=== PATIENT | male | born 1950 | race Caucasian/White ===

== ENCOUNTER → 2016-12-18 | Outpatient (CLI) | payer BC ==
[~2016-12-18] MED LIST: ASPEC325 PO; EZET10TA63 PO; FOLGARD PO; METO25TA3 PO; OMEG10007 PO
[2016-12-18 15:02] LABS: BLOOD UREA NITROGEN 21 mg/dl (7-18); CALCIUM 9.6 mg/dl (8.5-10.1); CARBON DIOXIDE 31 mmol/L (21-32); CHLORIDE 106 mmol/L (98-107); GLUCOSE 82 mg/dl (70-99); POTASSIUM 4.2 mmol/L (3.5-5.1); SODIUM 144 mmol/L (136-145)
== END | disposition home or self-care (01) ==
LOC: C.LAB1850 13:25
PROVIDERS: ATTEND Family Medicine
DX: I10 Essential (primary) hypertension (principal)

== ENCOUNTER → 2017-01-17 | Outpatient (CLI) | payer BC ==
[2017-01-17 11:05] LABS: HEMATOCRIT 43.4 % (42-52); MEAN CELL VOLUME 89.3 fL (80-100); MEAN CORPUSCULAR HEMOGLOBIN 30.9 pg (25-34); MEAN CORPUSCULAR HGB CONC 34.6 g/dl (32-36); MEAN PLATELET VOLUME 10.6 fL (7.4-10.4); PLATELET COUNT 166 K/uL (130-400); RED BLOOD COUNT 4.86 M/uL (4.7-6.1); WHITE BLOOD COUNT 4.53 K/uL (4.8-10.8)
[2017-01-17 11:18] LABS: CHOLESTEROL/HDL RATIO 4.2
== END | disposition home or self-care (01) ==
LOC: C.LAB1850 09:36
PROVIDERS: ATTEND Family Medicine
DX: Z11.59 Encounter for screening for other viral diseases (principal); E78.00 Pure hypercholesterolemia, unspecified; I25.10 Atherosclerotic heart disease of native coronary artery without angina pectoris

== ENCOUNTER → 2017-03-21 | Outpatient (CLI) | payer BC | END | disposition home or self-care (01) | LOC: C.LAB1850 08:24 | PROVIDERS: ATTEND Family Medicine | DX: M10.9 Gout, unspecified (principal) ==

== ENCOUNTER → 2017-04-13 | Outpatient (CLI) | payer BC | END | disposition home or self-care (01) | LOC: C.LAB1850 14:28 | PROVIDERS: ATTEND Family Medicine | DX: M10.9 Gout, unspecified (principal) ==

== ENCOUNTER → 2017-08-06 | Outpatient (CLI) | payer BC ==
[2017-08-06 16:53] LABS: ALT/SGPT 52 U/L (12-78); BLOOD UREA NITROGEN 14 mg/dl (7-18); BUN/CREATININE RATIO 10.8 (10-20); CARBON DIOXIDE 26 mmol/L (21-32); CHLORIDE 108 mmol/L (98-107); CHOLESTEROL 210 mg/dl (0-200); GLUCOSE 81 mg/dl (70-99); POTASSIUM 4.1 mmol/L (3.5-5.1); SODIUM 142 mmol/L (136-145)
[2017-08-06 16:56] LABS: ALKALINE PHOSPHATASE 120 U/L (45-117); AST/SGOT 31 U/L (15-37); HDL CHOLESTEROL 52 mg/dl; LDL CHOLESTEROL CALCULATED 134 mg/dl; TRIGLYCERIDES 122 mg/dl (0-150); VERY LOW DENSITY LIPOPROT CALC 24 mg/dl
== END | disposition home or self-care (01) ==
LOC: C.LAB1850 15:05
PROVIDERS: ATTEND Family Medicine
DX: I10 Essential (primary) hypertension (principal); E78.00 Pure hypercholesterolemia, unspecified; I25.10 Atherosclerotic heart disease of native coronary artery without angina pectoris

== ENCOUNTER → 2017-10-26 | Outpatient (CLI) | payer BC ==
[2017-10-26 10:32] LABS: BASO % 0.5 %; BASO ABS # 0.03 K/uL (0-0.2); EOS % 2.6 %; EOS ABS # 0.16 K/uL (0-0.5); HEMATOCRIT 45.8 % (42-52); HEMOGLOBIN 15.7 g/dL (14.0-18.0); IG# 0.02 K/uL (0.00-0.02); LYMPH % 37.6 %; LYMPH ABS # 2.31 K/uL (1.2-3.4); MEAN CELL VOLUME 91.8 fL (80-100); MEAN CORPUSCULAR HEMOGLOBIN 31.5 pg (25-34); MEAN CORPUSCULAR HGB CONC 34.3 g/dl (32-36); MEAN PLATELET VOLUME 9.9 fL (7.4-10.4); MONO % 11.2 %; MONO ABS # 0.69 K/uL (0.11-0.59); NEUT % 47.8 %; NEUT ABS # 2.93 K/uL (1.4-6.5); PLATELET COUNT 192 K/uL (130-400); RED CELL DISTRIBUTION WIDTH CV 13.6 % (11.5-14.5); RED CELL DISTRIBUTION WIDTH SD 44.8 fL (36.4-46.3); WHITE BLOOD COUNT 6.14 K/uL (4.8-10.8)
[2017-10-26 10:59] LABS: BLOOD UREA NITROGEN 26 mg/dl (7-18); CREATININE 1.17 mg/dl (0.60-1.40); GLUCOSE 101 mg/dl (70-99)
[2017-10-26 11:00] LABS: CALCIUM 9.7 mg/dl (8.5-10.1); CARBON DIOXIDE 30 mmol/L (21-32); POTASSIUM 3.8 mmol/L (3.5-5.1); SODIUM 137 mmol/L (136-145)
== END | disposition home or self-care (01) ==
LOC: C.LAB1850 09:04
PROVIDERS: ATTEND Physician Assistant
DX: K92.1 Melena (principal); I25.10 Atherosclerotic heart disease of native coronary artery without angina pectoris

== ENCOUNTER → 2017-12-05 | Outpatient (CLI) | payer BC | END | disposition home or self-care (01) | LOC: C.RDSM 19:00 | PROVIDERS: ATTEND Physical Medicine & Rehabilitation Sports Medicine | DX: M25.511 Pain in right shoulder (principal) ==

== ENCOUNTER → 2018-02-05 | Outpatient (CLI) | payer BC ==
[2018-02-05 17:03] LABS: ALBUMIN 3.8 gm/dl (3.4-5.0); ALT/SGPT 45 U/L (12-78); BLOOD UREA NITROGEN 15 mg/dl (7-18); CALCIUM 9.3 mg/dl (8.5-10.1); CARBON DIOXIDE 27 mmol/L (21-32); CHOLESTEROL 183 mg/dl (0-200); CREATININE 1.01 mg/dl (0.60-1.40); GLUCOSE 80 mg/dl (70-99); POTASSIUM 3.7 mmol/L (3.5-5.1); SODIUM 141 mmol/L (136-145); URIC ACID 5.7 mg/dl (2.6-7.2)
[2018-02-05 17:06] LABS: ALKALINE PHOSPHATASE 110 U/L (45-117); AST/SGOT 23 U/L (15-37); LDL CHOLESTEROL CALCULATED 121 mg/dl; TOTAL PROTEIN 7.4 gm/dl (6.4-8.2)
== END | disposition home or self-care (01) ==
LOC: C.LAB1850 15:50
PROVIDERS: ATTEND Family Medicine
DX: I10 Essential (primary) hypertension (principal); E78.00 Pure hypercholesterolemia, unspecified; I25.10 Atherosclerotic heart disease of native coronary artery without angina pectoris; M10.9 Gout, unspecified

== ENCOUNTER 2021-09-24 13:42 | Inpatient (IN) ==
--- NOTE | 2021-09-24 14:07 | CT Scan Report ---
CT head/brain wo con CLINICAL HISTORY: Stroke Alert Technique: Contiguous axial CT images of the head were acquired from the base of the skull to the ned daniel without intravenous contrast administration. Images were viewed in brain, subdural and bone [facility] . Automated dose lowering techniques and/or adjustment according to patient size were utilized for this exam. Comparison: Comparison is made to CTA head and neck 09/22/2021 Findings: There is a hypodensity in the right lentiform nucleus. This is more pronounced than on prior exam. Imaged portions of the paranasal sinuses and mastoid air cells are clear. The orbits appear normal. There are no acute fractures of the calvaria or scalp swelling. Impression: Increased prominence of the hypodensity in the right lentiform nucleus is concerning for a small acut e infarct. ACT 112: Negative or not required by law. Electronically signed by: Hernan Hollingsworth M.D. 09/24/2021 2:06 PM
[2021-09-24 14:25] LABS: Hematocrit (blood only) 47.5 % (42-52); Hemoglobin 16.7 g/dL (14.0-18.0); Mean Corpuscular Hemoglobin 32.1 pg (25-34); Mean Corpuscular Hgb Conc 35.2 g/dL (32-36); Mean Corpuscular Volume 91.2 fL (80-100); Platelet Count 199 K/uL (130-400); RDW Coefficient of Variation 13.2 % (11.5-14.5); RDW Standard Deviation 43.7 fL (36.4-46.3); Red Blood Count 5.21 M/uL (4.7-6.1); White Blood Count 8.81 K/uL (4.8-10.8)
[2021-09-24 14:30] LABS: iSTAT Creatinine 1.1 mg/dl (0.6-1.3); iSTAT Ionized Calcium 1.21 mmol/l (1.12-1.32)
--- NOTE | 2021-09-24 14:34 | Emergency Department Note ---
History of Present Illness General Chief complaint: Stroke/CVA Symptoms Stated complaint: LEFT SIDE OF FACE DROOPING/LEFT WEAK/SLURRED SP Time Seen by Provider: 09/24/21 13:56 Source: patient Mode of arrival: ambulatory Limitations: no limitations History of Present Illness Provider complaint: Left-sided weakness, facial droop This is a 71-year-old male who presents the emergency room for left-sided weakness and left facial droop. Patient made immediate stroke alert by triage nurse and I was called to assess the patient. Patient states he was seen here 2 nights ago with the same symptoms and underwent labs, CAT scan as well as MRI. He states he was discharged home and told he had vertigo. Patient states he is concerned as the symptoms are not improving. Patient denies that his symptoms are worsening. Denies accompanying headache, fevers, or vomiting. Patient states he does take an aspirin daily, and has a history of prior CABG. Patient denies any falls or trauma. Patient states he feels as though his left facial droop is worsening. Friend at bedside states he did not have that when he was s een here 2 nights ago however did have left-sided facial droop last night. Patient states with the left facial droop it makes it hard to swallow in addition. Pt seen during a time of high acuity and national emergency pandemic while wearing PPE. Home Medications Medication Instructions Recorded Confirmed Type aspirin 325 mg tablet 325 mg PO QAM 10/04/18 09/24/21 History nitroglycerin 0.4 mg sublingual 0.4 mg SL UD PRN #25 tab 06/28/20 09/24/21 Rx tablet colchicine 0.6 mg tablet 1.2 mg PO UD PRN 07/21/20 09/24/21 History amlodipine 5 mg tablet 5 mg PO QAM #90 tab 07/15/21 09/24/21 Rx allopurinol 100 mg tablet 100 mg PO QAM #90 tab 07/28/21 09/24/21 Rx metoprolol succinate 50 mg 50 mg PO QAM #90 tab 07/28/21 09/24/21 Rx tablet,extended release 24 hr (Toprol XL) furosemide 40 mg tablet (Lasix) 40 mg PO DAILY PRN #30 tab 09/16/21 09/24/21 Rx meclizine 25 mg tablet 25 mg PO TID PRN #20 tab 09/22/21 09/24/21 Rx Allergies Allergy/AdvReac Type Severity Reaction Status Date / Time Iodinated Contrast Media Allergy Intermediate Hives Verified 09/24/21 14:21 iodine Allergy Intermediate Hives Verified 09/24/21 14:21 shellfish derived Allergy Intermediate Hives Verified 09/24/21 14:21 Lmcpsse-[id number]-YfL Reductase Allergy Intermediate myalgia Verified 09/24/21 14:21 Inhibitor [Wryorzs-Tql-Mjm Reductase Inhibitor] Sulfa (Sulfonamide Allergy Intermediate HIVES Verified 09/24/21 14:21 Antibiotics) Past Med/Surg History Medical History Basal cell carcinoma of back removed in office CAD (coronary artery disease) Cervical disc disorder Diastolic congestive heart failure Frequent PVCs Gout History of basal cell carcinoma History of kidney stones Hypercholesterolemia Hypertension Normal colonoscopy On anticoagulant therapy aspirin 325mg daily Surgical History History of angioplasty x2--04/1989 (no stent placed) 12/1998 with 1 stent placed History of cardiac cath last 04/2005 @ [facility] by Dr. Benitez--sent to [facility] for CABG--follows with Dr. Benitez History of quadruple bypass 04/2005 @ [facility] History of repair of left rotator cuff S/P Mohs surgery for basal cell carcinoma (08/2020) Status post cataract extraction bilt Status post eye surgery retina repair 2012 on left eye Status post hemorrhoidectomy Status post hernia repair Family History Father , age 50 of an [place] Myocardial infarction Mother , age 68 of metastatic breast cancer Hearing loss Breast cancer Tremor Sister Hypertension Parkinson disease Other No family history of adverse response to anesthesia Denies family history of Ovarian cancer Prostate cancer Clotting disorder Colorectal cancer Social History Smoking Status: Never smoker Second Hand Exposure: Yes (stepfather smoked); Hx Alcohol Use: Yes Alcohol type: beer and wine Alcohol Intake Frequency: 2-4 x /Month Hx Substance Use: No Preferred Language: Armenian Communication Ability: Effective Visual Impairment: No Limitations Hearing Ability: Use of Hearing Aid Manager Engine Required: No Beliefs That Will Affect Care: None marital status: Single Current Living Situation: Alone current occupational status: retired 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 [employer] How many Children do You have: 0 Feels Safe at Home: Yes Childhood Exposure to Second-Hand Smoke: Yes caffeine: Yes (tea daily) during the past year weight has: remained stable Dental Care, Regularly: Yes Physical Activity Frequency: Daily Physical Activity Frequency Comment: 3 mi walk daily Seatbelt Use: always Sunscreen Use: No Assistive Devices: Hearing Aid - Bilateral Review of Systems A total of 10 systems reviewed and were otherwise negative All systems reviewed & are unremarkable except as noted in HPI & below Physical Exam Vital Signs Vital Signs - 24 hr 09/24/21 13:47 09/24/21 14:08 09/24/21 15:20 Temperature 36.7 C Temperature Source Oral Pulse Rate 70 Pulse Rate [Finger] 67 Respiratory Rate 16 18 Respiratory Depth Normal Blood Pressure 175/86 H Blood Pressure [Right Arm] 179/99 H Blood Pressure Mean 115 Blood Pressure Mean [Right Arm] 125 Pulse Oximetry 98 98 96 Oxygen Delivery Method Room Air Room Air Room Air Sepsis Recent Fever Within 48 Hours No Sepsis New/Unexplained Change in Mental Status No Sepsis Action Taken by Nursing No Action Required GENERAL: alert, well appearing, well nourished, no distress, non-toxic EYE EXAM: normal conjunctiva, PERRL and EOM's grossly intact OROPHARYNX: no exudate, no erythema, lips, buccal mucosa, and tongue normal and mucous membranes are moist NECK: supple, no nuchal rigidity, no adenopathy, non-tender LUNGS: Clear to auscultation. Normal chest wall mechanics, no w/r/r HEART: no murmurs, S1 normal and S2 normal ABDOMEN: abdomen soft, non-tender, normo-active bowel sounds, no masses, no rebound or guarding. BACK: Back is symmetrical on inspection and there is no deformity, no midline tenderness, no CVA tenderness. SKIN: no rashes and no bruising UPPER EXTREMITIES: upper extremities are grossly normal. FROM, nml pulses b/l. LOWER EXTREMITIES: No pitting edema. FROM, nml pulses b/l. NEURO EXAM: Normal sensorium, cranial nerves II-XII grossly intact, normal speech, left facial droop, no gross weakness of arms, no gross weakness of legs. Left UE and LE fatigue slightly easier than right. No ataxia. Gross sensation intact. NIHSS 2. Course Course 1425: Discussed with Dr. Burrell, [facility] teleneurology. Patient is not a candidate for TPA or any neuro intervention at this time given chronicity of symptoms. Agrees with plan to admit the patient for additional stroke evaluation and to give the patient an aspirin. 1440: Discussed with Dr. Orantes. Administered Medications Aspirin (Aspirin 81 Mg Ectab) 81 mg PO [facility] Stop: 10/25/21 08:59 Last Admin: 09/25/21 08:48 Dose: 81 mg Documented by: [id number] Clopidogrel Bisulfate (Clopidogrel Bisulfate 75 Mg Tab) 75 mg PO [facility] Stop: 10/25/21 08:59 Last Admin: 09/25/21 08:48 Dose: 75 mg Documented by: [id number] Metoprolol Succinate (Metoprolol Succ 50mg Ext Rel Tab) 50 mg PO [facility] Stop: 10/25/21 08:59 Last Admin: 09/25/21 08:48 Dose: 50 mg Documented by: [id number] Discontinued Medications Aspirin (Aspirin 325 Mg Ectab) 325 mg PO [facility] Stop: 10/24/21 14:44 Last Admin: 09/24/21 14:48 Dose: Not Given Documented by: [id number] Aspirin (Aspirin 300 Mg Supp) 300 mg [place] ONE ONE Stop: 09/24/21 16:08 Last Admin: 09/24/21 16:29 Dose: 300 mg Documented by: [id number] Clopidogrel Bisulfate (Clopidogrel Bisulfate 75 Mg Tab) 75 mg PO NOW STA Stop: 09/24/21 19:10 Last Admin: 09/24/21 19:45 Dose: 75 mg Documented by: [id number] Gadobutrol (Gadobutrol 30ml Vial) 8.5 ml IV ONCE ONE Stop: 09/24/21 17:10 Last Admin: 09/24/21 17:10 Dose: 8.5 ml Documented by: [id number] Sodium Chloride (Nss 1000ml) 1,000 mls @ 125 mls/hr IV .Q8H [facility] Stop: 10/24/21 14:44 Last Infusion: 09/24/21 21:12 Dose: 0 mls/hr Documented by: [id number] Admin: 09/24/21 14:48 Dose: 125 mls/hr Documented by: [id number] Potassium Chloride (Potassium Chloride Crtab 20 Meq Tabcr) 20 meq PO NOW STA Stop: 09/25/21 10:09 Last Admin: 09/25/21 10:28 Dose: 20 meq Documented by: [id number] Medical Decision Making Differential Diagnosis Differential Diagnosis includes but is not limited to ischemic Stroke, hemorrhagic stroke, bells palsy, mass, neoplasm, migraine headache, seizure, subarachnoid hemorrhage, TIA, and transient global amnesia. Medical Records Attestation: I reviewed the patient's medical records. Home Medications Current Medication List: was personally reviewed by me Laboratory Data Attestation: I reviewed the patient's lab results. Result diagrams: 09/25/21 06:12 09/25/21 06:12 Lab Results 09/24/21 09/24/21 09/24/21 Range/Units 14:10 14:10 14:10 WBC 8.81 (4.8-10.8) K/uL RBC 5.21 (4.7-6.1) M/uL Hgb 16.7 (14.0-18.0) g/dL POC Hgb (14.0-18.0) g/dl Hct 47.5 (42-52) % POC Hct (42-52) % MCV 91.2 (80-100) fL MCH 32.1 (25-34) pg MCHC 35.2 (32-36) g/dL RDW Std Deviation 43.7 (36.4-46.3) fL RDW Coeff of Shashi 13.2 (11.5-14.5) % Plt Count 199 (130-400) K/uL MPV 10.0 (7.4-10.4) fL PT 10.4 (9.0-12.0) Seconds INR 1.0 (0.9-1.1) APTT 30.5 (21.0-31.0) Seconds PTT Ratio 1.2 POC Sodium (135-144) mmol/L Sodium 136 (136-145) mmol/L POC Potassium (3.3-5.0) mmol/L Potassium 3.9 (3.5-5.1) mmol/L POC Chloride (101-112) mmol/L Chloride 105 (98-107) mmol/L Carbon Dioxide 23 (21-32) mmol/L POC Total CO2 (24-31) mmol/L Anion Gap 8.0 (3-11) POC Anion Gap (16-25) mmol/L POC BUN (7-18) mg/dl BUN 25 H (7-18) mg/dl Creatinine 1.18 (0.6-1.4) mg/dl POC Creatinine (0.6-1.3) mg/dl Est Cr Clr Drug Dosing 60.3 ml/min Est GFR ( Amer) 70.5 ml/min Est GFR (Non-Af Amer) 60.9 ml/min BUN/Creatinine Ratio 21.6 H (10-20) Glucose 97 (70-99) mg/dl POC Glucose (other) (70-99) mg/dl Calcium 10.0 (8.5-10.1) mg/dl POC Ioniz Calcium Mary (1.12-1.32) mmol/l Magnesium 2.4 (1.8-2.4) mg/dl Total Bilirubin 1.8 H (0.2-1) mg/dl AST 41 H (15-37) U/L ALT 37 (12-78) U/L Alkaline Phosphatase 130 H (45-117) U/L Troponin I < 0.015 (0-0.045) ng/ml Total Protein 9.1 H (6.4-8.2) gm/dl Albumin 4.4 (3.4-5.0) gm/dl Globulin 4.7 H (2.5-4.0) gm/dl Albumin/Globulin Ratio 0.9 (0.9-2) SARS-CoV-2, RNA, NAAT (NEGATIVE) 09/24/21 09/24/21 Range/Units 14:17 14:35 WBC (4.8-10.8) K/uL RBC (4.7-6.1) M/uL Hgb (14.0-18.0) g/dL POC Hgb 17.0 (14.0-18.0) g/dl Hct (42-52) % POC Hct 50 (42-52) % MCV (80-100) fL MCH (25-34) pg MCHC (32-36) g/dL RDW Std Deviation (36.4-46.3) fL RDW Coeff of Shashi (11.5-14.5) % Plt Count (130-400) K/uL MPV (7.4-10.4) fL PT (9.0-12.0) Seconds INR (0.9-1.1) APTT (21.0-31.0) Seconds PTT Ratio POC Sodium 140 (135-144) mmol/L Sodium (136-145) mmol/L POC Potassium 4.0 (3.3-5.0) mmol/L Potassium (3.5-5.1) mmol/L POC Chloride 105 (101-112) mmol/L Chloride (98-107) mmol/L Carbon Dioxide (21-32) mmol/L POC Total CO2 21 L (24-31) mmol/L Anion Gap (3-11) POC Anion Gap 19.0 (16-25) mmol/L POC BUN 27 H (7-18) mg/dl BUN (7-18) mg/dl Creatinine (0.6-1.4) mg/dl POC Creatinine 1.1 (0.6-1.3) mg/dl Est Cr Clr Drug Dosing ml/min Est GFR ( Amer) ml/min Est GFR (Non-Af Amer) ml/min BUN/Creatinine Ratio (10-20) Glucose (70-99) mg/dl POC Glucose (other) 97 (70-99) mg/dl Calcium (8.5-10.1) mg/dl POC Ioniz Calcium Mary 1.21 (1.12-1.32) mmol/l Magnesium (1.8-2.4) mg/dl Total Bilirubin (0.2-1) mg/dl AST (15-37) U/L ALT (12-78) U/L Alkaline Phosphatase (45-117) U/L Troponin I (0-0.045) ng/ml Total Protein (6.4-8.2) gm/dl Albumin (3.4-5.0) gm/dl Globulin (2.5-4.0) gm/dl Albumin/Globulin Ratio (0.9-2) SARS-CoV-2, RNA, NAAT NEGATIVE (NEGATIVE) Imaging Data Radiologist's Impression: Head CT 09/24/21 13:50 CT head/brain wo con CLINICAL HISTORY: Stroke Alert Technique: Contiguous axial CT images of the head were acquired from the base of the skull to the vertex without intravenous contrast administration. Images were viewed in brain, subdural and bone windows. Automated dose lowering techniques and/or adjustment according to patient size were utilized for this exam. Comparison: Comparison is made to CTA head and neck 09/22/2021 Findings: There is a hypodensity in the right lentiform nucleus. This is more pronounced than on prior exam. Imaged portions of the paranasal sinuses and mastoid air cells are clear. The orbits appear normal. There are no acute fractures of the calvaria or scalp swelling. Impression: Increased prominence of the hypodensity in the right lentiform nucleus is concerning for a small acute infarct. ACT 112: Negative or not required by law. Electronically signed by: Hernan Hollingsworth M.D. 09/24/2021 2:06 PM Brain MRI 09/24/21 15:38 MR brain wo/w con CLINICAL HISTORY: Left-sided weakness in the face, head, arm, and leg. Vertigo. Normal exam in prior study. TECHNIQUE: Multiplanar and multisequence MR images of the brain were obtained prior to and following administration of gadolinium contrast. Comparison: Comparison is made to CTA head 09/24/2021 and MRI brain 09/22/2021 FINDINGS: There is a focus of restricted diffusion in the right lentiform nucleus corresponding to the region of edema seen on prior CT head. Corresponding edema is seen. There is minimal mass effect on the right lateral ventricle and no midline shift. The ventricular system is normal in appearance. There is no evidence of acute intraparenchymal hemorrhage. No extra axial fluid collections are seen. There are no masses, mass effect, or midline shift. No abnormal enhancement is seen. The corpus callosum, pituitary gland, and cerebellar tonsils appear grossly unremarkable. Flow voids of the major intracranial arterial vessels are identified. The imaged portions of the paranasal sinuses, mastoid air cells, and orbits are unremarkable. IMPRESSION: Acute infarct in the right lentiform nucleus. This corresponds to findings on the prior CT head. This is much more pronounced than in the prior MRI from 09/23/2021. ACT 112: Negative or not required by law. Electronically signed by: Hernan Hollingsworth M.D. 09/24/2021 6:35 PM ECG Data Attestation: I personally reviewed and interpreted this ECG as follows: Indication: + other Rate (beats per minute): 69 Rhythm: + normal sinus ECG Intervals/blocks: + Incomplete right bundle branch block and + Normal QT ECG [place]: + Normal ECG ST segments: + T-wave inversions (II, III, aVF, V3-6) Comparison ECG Date: from (09/22/2021) Change: no significant change MDM Narrative This is a 71-year-old male who presents due to concern for left-sided weakness and left facial droop. Patient states symptoms have been present for 2 days although friend states the left facial droop is only 24 hours old. Patient was afebrile and hemodynamically stable. Patient made a stroke alert by triage nurse and sent immediately for CT imaging. Noncontrast CT of the head did reveal acute infarct. Case was discussed with on-call stroke teleneurologist as a precaution. Given chronicity of symptoms patient was not a candidate for TPA or other acute neuro intervention. Case discussed with hospitalist for additional evaluation. Patient was given an aspirin [place] after failing his dysphagia screen. No other evidence of evolving infection or electrolyte abnormality. Patient cautiously hydrated through the IV. Despite recent negative CT and MR here 48 hours ago, patient with significant vascular history. An order was placed for continuous cardiac monitoring. The monitor shows a rate of _66_ with _normal sinus_ rhythm. Impression & Plan Acute CVA (cerebrovascular accident) Discharge Plan Visit Data Chief Complaint: Stroke/CVA Symptoms Stated Complaint: LEFT SIDE OF FACE DROOPING/LEFT WEAK/SLURRED SP ED Provider: Swathi Linares Discharge Problem: Acute CVA (cerebrovascular accident) Patient Disposition: Admitted As Inpatient Discharge Instructions Interventions: ED Discharge Assessment Last Done: 09/24/21 18:55
[2021-09-24 14:36] LABS: Partial Thromboplastin Ratio 1.2; Partial Thromboplastin Time 30.5 Seconds (21.0-31.0); Prothrombin Time 10.4 Seconds (9.0-12.0)
[2021-09-24 14:45] LABS: Alanine Aminotransferase 37 U/L (12-78); Albumin Level 4.4 gm/dl (3.4-5.0); Aspartate Aminotransferase 41 U/L (15-37); BUN Creatinine Ratio 21.6 (10-20); Blood Urea Nitrogen 25 mg/dl (7-18); Carbon Dioxide 23 mmol/L (21-32); Chloride 105 mmol/L (98-107); Creatinine Clr Calc Pharmacy 60.3 ml/min; Est GFR (African American) 70.5 ml/min; Est GFR (Non-African American) 60.9 ml/min; Glucose 97 mg/dl (70-99); Magnesium 2.4 mg/dl (1.8-2.4); Potassium 3.9 mmol/L (3.5-5.1); Sodium 136 mmol/L (136-145)
[2021-09-24] MEDS ORDERED: SODIUM CHLORIDE 0.9% 1000ML 1,000 ML IV SCH (14:45)
[2021-09-24] MEDS ORDERED: ASPIRIN 325 MG ECTAB PO SCH (14:45)
[2021-09-24 14:50] LABS: Albumin Globulin Ratio 0.9 (0.9-2); Alkaline Phosphatase 130 U/L (45-117); Bilirubin,Total 1.8 mg/dl (0.2-1); Globulin 4.7 gm/dl (2.5-4.0); Total Protein 9.1 gm/dl (6.4-8.2); Troponin I < 0.015 ng/ml (0-0.045)
[2021-09-24] MEDS ORDERED: ASPIRIN 300 MG SUPP PR ONE (16:07)
--- NOTE | 2021-09-24 16:22 | History & Physical Report ---
Date of Service September 24, 2021 Assessment & Plan (1) CVA (cerebral vascular accident): Plan: CVA - hypodensity in the right lentiform nucleus. Also with microvascular disease- - Risk factors, AGE, HLD, HTN - With left sided facial droop, dysphagia, balance, and ataxia - Asa 81mg PO daily - Add Plavix 75 mg PO daily - Patient intolerant to statins- - Allow permissive HTN - MRI repeat - Neurology consult for disease modifying medications follow - PT/OT consult - Speech evaluation- diet for now minced and moist slippery- does not choke with water (2) Cerebral vascular disease: Plan: Mild/moderate multifocal stenosis within the bilateral MCAs, bilateral telephone answering service operator, and left ICA is described above - Continue with BP management - Lipid management- - Asa/plavix as above (3) Fall: Plan: On patient reports multiple- no acute injury noted on exam or imaging - continue as above with neurologica exams - any change repeat non-con head CT (4) Hypercholesterolemia: Plan: Cholesterol 218 mg/dl (0-200) H 07/25/21 12:58C 07/25/21 LDL Calculated 139 mg/dl 07/25/21 12:58 07/25/21 HDL 68 mg/dl 07/25/21 12:58 07/25/21 Patient recalls trying multiple statin medications and having myalgias with all of them. He endorses that some were worse than others. Lipid profile as above (5) CAD (coronary artery disease): Plan: CAD with angioplastin in 1988, stent in and CABG x4 in 2004 - As above continue with BB, ASA, BP control with amlodopine (6) Diastolic congestive heart failure: Plan: PRN diuretics for weight gain as outpatient - hold - will follow daily and diurese as needed - no acute symtpoms of failure (7) Hypertension: Plan: Permissive HTN with CVA - continue BB for CAD (8) Gout: Plan: No accute flare- allopurinol and colchicine on hold at admission (9) Gait instability: Plan: Secondary to CVA as above - PT/OT consult History of Present Illness Primary Care Provider: Hilda Pepe, DO 71 YOM with past medical history of: HTN, HLD, CAD, CABG (2004), HFpEF, Gout, cervicalgia, essential tremor. Patient comes in today for noticing left sided facial droop, dysphagia, and left leg weakness. The patient noticed these symptoms starting on upon returning home from the [facility] at approximately 1600. The patient came to the EMD on for complaints of left lower extremity weakness and dizziness. The patient had CTA of the head and neck completed, CT of the head, and MRI of the head completed on . The studies at that time were not interpreted as acute CVA. When he got home t day he feels his symptoms then continued to progress from the left leg weakness, to difficulty walking on it, facial droop that got progressive and was also associated with him biting the inside of his mouth, and dysphagia with large bites of food. His friends came over for the [employer] today and noticed the above symptoms as well and he was brought to the EMD via POV, he was noted to have some balance instability at that time with leaning to the left and coordination efforts were difficulty with the left arm and foot. In the EMD the patient had a repeat of his CT scan of his head which was interpreted as Increased prominence of the hypodensity in the right lentiform nucleus is concerning for a small acute infarct. Only other change patient has noticied, is increase in frequency and urgency of urination- UA ordered. Patient will be admitted for continued assessment of his neurological status, medication optimization, and repeat of brain MRI. Patient has history of HLD and is intolerant to statins in the past secondary to myalgias. Patient has had his COVID vaccine and his COVID test on admission is: NEGATIVE Allergies Allergy/AdvReac Type Severity Reaction Status Date / Time Iodinated Contrast Media Allergy Intermediate Hives Verified 09/24/21 14:21 iodine Allergy Intermediate Hives Verified 09/24/21 14:21 shellfish derived Allergy Intermediate Hives Verified 09/24/21 14:21 [id number] Reductase Allergy Intermediate myalgia Verified 09/24/21 14:21 Inhibitor [Jcewunx-Xmd-Jpf Reductase Inhibitor] Sulfa (Sulfonamide Allergy Intermediate HIVES Verified 09/24/21 14:21 Antibiotics) Home Medications Medication Instructions Recorded Confirmed Type aspirin 325 mg tablet 325 mg PO QAM 10/04/18 09/24/21 History nitroglycerin 0.4 mg sublingual 0.4 mg SL UD PRN #25 tab 06/28/20 09/24/21 Rx tablet colchicine 0.6 mg tablet 1.2 mg PO UD PRN 07/21/20 09/24/21 History amlodipine 5 mg tablet 5 mg PO QAM #90 tab 07/15/21 09/24/21 Rx allopurinol 100 mg tablet 100 mg PO QAM #90 tab 07/28/21 09/24/21 Rx metoprolol succinate 50 mg 50 mg PO QAM #90 tab 07/28/21 09/24/21 Rx tablet,extended release 24 hr (Toprol XL) furosemide 40 mg tablet (Lasix) 40 mg PO DAILY PRN #30 tab 09/16/21 09/24/21 Rx meclizine 25 mg tablet 25 mg PO TID PRN #20 tab 09/22/21 09/24/21 Rx Past Med/Surg History Medical History Basal cell carcinoma of back removed in office CAD (coronary artery disease) Cervical disc disorder Diastolic congestive heart failure Frequent PVCs Gout History of basal cell carcinoma History of kidney stones Hypercholesterolemia Hypertension Normal colonoscopy On anticoagulant therapy aspirin 325mg daily Surgical History History of angioplasty x2--04/1989 (no stent placed) 12/1998 with 1 stent placed History of cardiac cath last 04/2005 @ [facility] by Dr. Benitez--sent to [facility] [place] for CABG--follows with Dr. Benitez History of quadruple bypass 04/2005 @ [facility] [place] History of repair of left rotator cuff S/P Mohs surgery for basal cell carcinoma (08/2020) Status post cataract extraction bilt Status post eye surgery retina repair 2012 on left eye Status post hemorrhoidectomy Status post hernia repair Family History Father No problems noted. Mother Hearing loss Breast cancer Tremor Sister Hypertension Parkinson disease Other No family history of adverse response to anesthesia Denies family history of Ovarian cancer Prostate cancer Clotting disorder Myocardial infarction Colorectal cancer Social History Smoking Status: Never smoker Second Hand Exposure: Yes (stepfather smoked); Hx Alcohol Use: Yes Alcohol type: wine and hard liquor Alcohol Intake Frequency: 2-4 x/Month Hx Substance Use: No Preferred Language: Czech Communication Ability: Effective Visual Impairment: No Limitations Hearing Ability: Use of Hearing Aid Community Aide Required: No Beliefs That Will Affect Care: None marital status: Single Current Living Situation: Alone current occupational status: retired How many Children do You have: 0 Feels Safe at Home: Yes Childhood Exposure to Second-Hand Smoke: Yes caffeine: Yes (tea daily) during the past year weight has: remained stable Dental Care, Regularly: Yes Physical Activity Frequency: Daily Physical Activity Frequency Comment: 3 mi walk daily Seatbelt Use: always Sunscreen Use: No Assistive Devices: Glasses and Hearing Aid - Bilateral Review of Systems Review of Systems: REVIEW OF SYSTEMS: Constitutional: No fever, sweats or chills Eyes: No diplopia, no worsening or blurred vision ENT: (+) difficulty hearing wears hearing aids, dysphagia Respiratory: No cough, sputum, dyspnea at rest or on exertion Cardiovascular: No chest pain, tightness or palpitations Abdomen: No pain, nausea, vomiting, diarrhea or constipation Musculoskeletal: No joint pain, calf pain, swelling Neurologic: (+) left sided weakness, numbness/tingling, and balance problems Psychiatric: No anxiety or depression Skin: No rash or itch Physical Exam Physical Exam: PHYSICAL EXAM: General: awake, alert, no apparent distress Head: Normocephalic, atraumatic ENT: PERRLA, EOMI, no pharyngeal exudate, mucous membranes moist Neuro: AAO x 3, speech clear and appropriate- mild slurring of words, tongue midline, left side facial droop strength intact bilaterally 5/5 upper and lower right side, 4/5 left upper and lower, overshoot and discoordinate with finger to nose on the left, ataxia and difficulty with tandem walking with left side. NIHSS- 3 Chest: equal rise and fall of the chest, no accessory muscle use, no heaves or thrills, Clear to auscultation, on room air, Cardiac: Regular rate and rhythm, telemetry reviewed-NSR, skin warm dry, cap refill <3 seconds, peripheral pulses +2 no JVD, no murmur, no JVD, no edema GI: NABS x 4 quadrants, soft, nontender to palpation, no rebound, guarding or tenderness : urgency and increase frequency reported with patient Extremities: Normal inspection, no peripheral edema or erythema, calfs nontender to palpation Psych: Normal mood and affect Skin: no rash or erythema Results & Data Results & Data ([facility]) Vital Signs (Past 12 Hours) Vital Signs Temp Pulse Pulse Resp BP BP Pulse Ox 09/24/21 15:20 67 18 179/99 H 96 09/24/21 14:08 98 09/24/21 13:47 36.7 C 70 16 175/86 H 98 Laboratory Results Abnormal lab results 09/24/21 09/24/21 Range/Units 14:10 14:17 POC Total CO2 21 L (24-31) mmol/L POC BUN 27 H (7-18) mg/dl BUN 25 H (7-18) mg/dl BUN/Creatinine Ratio 21.6 H (10-20) Total Bilirubin 1.8 H (0.2-1) mg/dl AST 41 H (15-37) U/L Alkaline Phosphatase 130 H (45-117) U/L Total Protein 9.1 H (6.4-8.2) gm/dl Globulin 4.7 H (2.5-4.0) gm/dl Diagnostic Findings Head CT 09/24/21 13:50 CT head/brain wo con CLINICAL HISTORY: Stroke Alert Technique: Contiguous axial CT images of the head were acquired from the base of the skull to the vertex without intravenous contrast administration. Images were viewed in brain, subdural and bone windows. Automated dose lowering techniques and/or adjustment according to patient size were utilized for this exam. Comparison: Comparison is made to CTA head and neck 09/22/2021 Findings: There is a hypodensity in the right lentiform nucleus. This is more pronounced than on prior exam. Imaged portions of the paranasal sinuses and mastoid air cells are clear. The orbits appear normal. There are no acute fractures of the calvaria or scalp swelling. Impression: Increased prominence of the hypodensity in the right lentiform nucleus is conc erning for a small acute infarct. ACT 112: Negative or not required by law. Electronically signed by: Hernan Hollingsworth M.D. 09/24/2021 2:06 PM MR brain wo con- Service Date:09/22/21 HISTORY: 71 years-old Male Posterior circulatoin infarct, dizzy and leaning R acute dizziness with left-sided weakness COMPARISON: CTA head and neck of same day TECHNIQUE: Multiplanar multisequence MRI of the brain was obtained without the use of IV contrast. FINDINGS: Paste Up Copy Camera Operator localizer images demonstrate no gross extracranial abnormality. There is no restricted diffusion to suggest acute or subacute infarct. There is no acute intracranial hemorrhage, midline shift, abnormal extra-axial collection, hydrocephalus or intracranial mass. No pathologic blooming artifact. Mild age-related involutional changes. Minimal white matter T2/FLAIR hyperintensities suggest a component of chronic microvascular ischemic disease. The cerebral venous sinuses and major arterial flow voids appear patent. Mastoid air cells are clear. Minimal mucosal thickening of the paranasal sinuses. Prior left-sided lens repair. The skull, orbits and soft tissues are unremarkable. IMPRESSION: No acute intracranial abnormality. No acute or subacute infarct. HEAD & NECK CTA- 09/22/21 HISTORY: Dizziness. TECHNIQUE: Multiaxial CT images of the head were performed both before and after the intravenous administration of contrast to evaluate the major cerebral vessels. Multiaxial CT images of the neck were also performed following the intravenous administration of contrast to evaluate the major cervical vessels. Maximum intensity projection images were also obtained. A dose lowering technique was utilized adhering to the principles of ALARA. COMPARISON: None. FINDINGS: There is no mass, hematoma, midline shift, or acute infarct. Mild to moderate calcified plaque within the bilateral carotid siphons. No significant stenosis within the right internal carotid artery, distal vertebral arteries, or basilar artery. There is mild focal stenosis within the supraclinoid segment of the left ICA. There is mild multifocal stenosis within the proximal bilateral telephone answering service operator. There is mild to moderate stenosis within the distal left M1 segment of up to 50%. There is moderate diffuse narrowing of the right M1 segment between 50 and 70% stenosis. There is a hypoplastic left A1 segment which is likely developmental. Remaining bilateral ACAs are patent. No aneurysm or occlusion identified within the [place] of [place]. The aortic arch and proximal great vessels are widely patent. There is no significant stenosis, occlusion, or dissection identified within the bilateral common carotid or vertebral arteries. Partially visualized calcified plaques within the right lung apex. There is moderate atherosclerotic plaque within the bilateral carotid bifurcations. This results in up to 50% stenosis at the origin of the right internal carotid artery. No significant stenosis within the left internal carotid artery. Remaining mid to distal internal carotid arteries are intact. IMPRESSION: 1. No acute infarct or intracranial hemorrhage identified. 2. Mild/moderate multifocal stenosis within the bilateral MCAs, bilateral telephone answering service operator, and left ICA is described above. No areas of arterial occlusion or aneurysm within the [place] of [place]. 3. Moderate atherosclerotic plaque within the bilateral carotid bifurcations. This results in up to 50% stenosis at the origin of the right internal carotid artery. No significant stenosis within the left internal carotid artery or vertebral arteries. Medications Administered Home Medications aspirin 325 mg tablet 325 mg PO QAM 10/04/18 [History Confirmed 09/24/21] nitroglycerin 0.4 mg sublingual tablet 0.4 mg SL UD PRN #25 tab 06/28/20 [Rx Confirmed 09/24/21] colchicine 0.6 mg tablet 1.2 mg PO UD PRN 07/21/20 [History Confirmed 09/24/21] amlodipine 5 mg tablet 5 mg PO QAM #90 tab 07/15/21 [Rx Confirmed 09/24/21] allopurinol 100 mg tablet 100 mg PO QAM #90 tab 07/28/21 [Rx Confirmed 09/24/21] metoprolol succinate 50 mg tablet,extended release 24 hr (Toprol XL) 50 mg PO QAM #90 tab 07/28/21 [Rx Confirmed 09/24/21] furosemide 40 mg tablet (Lasix) 40 mg PO DAILY PRN #30 tab 09/16/21 [Rx Confirmed 09/24/21] meclizine 25 mg tablet 25 mg PO TID PRN #20 tab 09/22/21 [Rx Confirmed 09/24/21] Active Medications Sodium Chloride (Nss 1000ml) 1,000 mls @ 125 mls/hr IV .Q8H DERRICK Stop: 10/24/21 14:44 Last Admin: 09/24/21 14:48 Dose: 125 mls/hr Documented by: Sodium Chloride (Nss 1000ml) 1,000 mls @ 125 mls/hr IV .Q8H DERRICK Stop: 10/24/21 14:44 Last Admin: 09/24/21 14:48 Dose: 125 mls/hr Documented by: [id number] Discontinued Medications Aspirin (Aspirin 325 Mg Ectab) 325 mg PO QAM DERRICK Stop: 10/24/21 14:44 Last Admin: 09/24/21 14:48 Dose: Not Given Documented by: [id number] ECG Additional Comments: Normal sinus rhythm Possible Left atrial enlargement RSR' or QR pattern in V1 suggests right ventricular conduction delay ST & T wave abnormality, consider inferior ischemia ST & T wave abnormality, consider anterolateral ischemia Abnormal ECG When compared with ECG of 22-SEP-2021 10:02, Minimal criteria for Inferior infarct are no longer Present Inverted T waves have replaced nonspecific T wave abnormality in Anterior leads Code Status & VTE Plan VTE Prophylaxis Plan VTE Prophylaxis will be ordered: Yes Supervising Physician Co-Signing Physician Notes Patient was seen and examined independently I discussed the case with Vladimir MANN I reviewed pertinent past medical social family history and also the plan of care and agree with the plan of care. Patient returns after having vertiginous symptoms now with some facial droop and hemiplegia found to have a subacute infarction in the right lentiform nucleus confirmed on MRI scan. Patient will be on antiplatelet agents is intolerant to statins. Neurology consult undertaken ED OT speech evaluation be undertaken consideration of rehab Examination with exception of the neurological deficits is without remark Any exceptions will be noted below PG Care Time/CCT Total # of Minutes Spent Total Time Spent with Patient: Total time spent is greater than 50% in coordination of care (as documented) at patient's floor/unit and/or counseling patient: Coding Level of Care Code 88432 Initial Inpt Care Lvl 3 Diagnoses CVA (cerebral vascular accident) I63.9 Cerebral vascular disease I67.9 Fall W19.XXXA Encounter type: initial encounter CAD (coronary artery disease) I25.10 Diastolic congestive heart failure I50.30 Hypercholesterolemia E78.00 Hypertension I10 Gout M10.9 Gait instability R26.81 (1) Fall Encounter type: initial encounter Qualified Code(s): W19.XXXA - Unspecified fall, initial encounter
[2021-09-24] MEDS ORDERED: GADOBUTROL 30ML VIAL IV ONE (17:09)
--- NOTE | 2021-09-24 18:36 | Magnetic Resonance Report ---
MR brain wo/w con CLINICAL HISTORY: Left-sided weakness in the face, head, arm, and leg. Vertigo. Normal exam in prior study. TECHNIQUE: Multiplanar and multisequence MR images of the brain were obtained prior to and following administration of gadolinium contrast. Comparison: Comparison is made to CTA head 09/24/2021 and MRI brain 09/22/2021 FINDINGS: There is a focus of restricted diffusion in the right lentiform nucleus corresponding to the region o f edema seen on prior CT head. Corresponding edema is seen. There is minimal mass effect on the right lateral ventricle and no midline shift. The ventricular system is normal in appearance. There is no evidence of acute intraparenchymal hemorrhage. No extra axial fluid collections are seen. There are n o masses, mass effect, or midline shift. No abnormal enhancement is seen. The corpus callosum, pitui tary gland, and cerebellar tonsils appear grossly unremarkable. Flow voids of the major intracranial arterial vessels are identified. The imaged portions of the para nasal sinuses, mastoid air cells, and orbits are unremarkable. IMPRESSION: Acute infarct in the right lentiform nucleus. This corresponds to findings on the prior CT head. This is much more pronounced than in the prior MRI from 09/23/2021. ACT 112: Negative or not required by law. Electronically signed by: Hernan Hollingsworth M.D. 09/24/2021 6:35 PM
[2021-09-24] MEDS ORDERED: PHARMACIST DISCHARGE MED REC CONSULT PRN (18:57)
[2021-09-24] MEDS ORDERED: ACETAMINOPHEN 325 MG TAB PO PRN (18:57)
[2021-09-24] MEDS ORDERED: POLYETHYLENE (MIRALAX) 17 GM PACK PO PRN (18:57)
[2021-09-24] MEDS ORDERED: NITROGLYCERIN SL 0.4 MG/TAB TAB SL PRN (18:57)
[2021-09-24] MEDS ORDERED: CLOPIDOGREL BISULFATE 75 MG TAB PO STA (19:09)
[2021-09-24 21:41] LABS: Appearance Urine Clear (Clear); Bilirubin Urine Negative (Negative); Blood Urine Negative (Negative); Color Urine Yellow; Glucose Urine UA Negative (Negative); Ketones Urine Trace (Negative); Leukocyte Esterase Urine Negative (Negative); Nitrite Urine Negative (Negative); Protein Urine Negative (Negative); Specific Gravity Urine 1.011 (1.000-1.030); Urobilinogen Urine Negative (Negative)
[2021-09-25 06:43] LABS: Basophils # (auto) 0.02 K/uL (0-0.2); Basophils % (auto) 0.3 %; Eosinophils # (auto) 0.14 K/uL (0-0.5); Eosinophils % (auto) 2.1 %; Hematocrit (blood only) 43.8 % (42-52); Hemoglobin 15.5 g/dL (14.0-18.0); Immature Granulocytes # (auto) 0.01 K/uL (0.00-0.02); Immature Granulocytes % (auto) 0.2 %; Lymphocytes # (auto) 1.45 K/uL (1.2-3.4); Lymphocytes % (auto) 22.1 %; Mean Corpuscular Hemoglobin 32.2 pg (25-34); Mean Corpuscular Hgb Conc 35.4 g/dL (32-36); Mean Corpuscular Volume 91.1 fL (80-100); Mean Platelet Volume 9.8 fL (7.4-10.4); Monocytes # (auto) 1.01 K/uL (0.11-0.59); Monocytes % (auto) 15.4 %; Neutrophils # (auto) 3.93 K/uL (1.4-6.5); Neutrophils % (auto) 59.9 %; Platelet Count 184 K/uL (130-400); RDW Coefficient of Variation 13.2 % (11.5-14.5); RDW Standard Deviation 43.8 fL (36.4-46.3); Red Blood Count 4.81 M/uL (4.7-6.1); White Blood Count 6.56 K/uL (4.8-10.8)
[2021-09-25 07:14] LABS: BUN Creatinine Ratio 19.5 (10-20); Calcium 9.1 mg/dl (8.5-10.1); Creatinine Clr Calc Pharmacy 71.5 ml/min; Est GFR (African American) 85.1 ml/min; Est GFR (Non-African American) 73.4 ml/min; Magnesium 2.2 mg/dl (1.8-2.4); Potassium 3.4 mmol/L (3.5-5.1)
[2021-09-25] MEDS: METOPROLOL SUCC 50MG EXT REL TAB PO SCH (08:48)
[2021-09-25] MEDS: ASPIRIN 81 MG ECTAB PO SCH (08:48)
[2021-09-25] MEDS: CLOPIDOGREL BISULFATE 75 MG TAB PO SCH (08:48)
--- NOTE | 2021-09-25 09:45 | Hospitalist Progress Note ---
Date of Service September 25, 2021 Assessment & Plan (1) CVA (cerebral vascular accident): Plan: CVA - hypodensity in the right lentiform nucleus. Also with microvascular disease- - Risk factors, AGE, HLD, HTN - With left sided facial droop, dysphagia, balance, and ataxia- improving on - Asa 81mg PO daily - Add Plavix 75 mg PO daily - Patient intolerant to statins secondary to previous reported myalgias- Can only find on record review that he was on Zocor in the past- will try low dose Rosuvastatin 10mg PO daily- Patient is willing to try them again - Not sure if he was taking his previous statins with his colchicine or not. - Allow permissive HTN - MRI repeated confirms the above - Neurology consult for disease modifying medications follow- appreciate neurology assistance - PT/OT consult- completed, patient likely be good candidate to continue PT as outpatient - Speech evaluation- diet for now minced and moist slippery- does not choke with water - pending (2) Cerebral vascular disease: Plan: Mild/moderate multifocal stenosis within the bilateral MCAs, bilateral executor of estate, and left ICA is described above - Continue with BP management - Lipid management- - Asa/plavix as above (3) Fall: Plan: On patient reports multiple- no acute injury noted on exam or imaging - continue as above with neurologica exams - any change repeat non-con head CT (4) Hypercholesterolemia: Plan: Cholesterol 218 mg/dl (0-200) H 07/25/21 12:58 07/25/21 LDL Calculated 139 mg/dl 07/25/21 12:58 07/25/21 HDL 68 mg/dl 07/25/21 12:58 07/25/21 Patient recalls trying multiple statin medications and having myalgias with all of them. He endorses that some were worse than others. Lipid profile as above (5) CAD (coronary artery disease): Plan: CAD with angioplasty in 1988, stent in and CABG x4 in 2004 - As above continue with BB, ASA, BP control with amlodipine - Rosuvastatin initiated- follow for tolerance (6) Diastolic congestive heart failure: Plan: PRN diuretics for weight gain as outpatient - hold - will follow daily and diurese as needed - no acute symtpoms of failure (7) Hypertension: Plan: Permissive HTN with CVA - continue BB for CAD - restarted home amlodipine - held for permissive HTN overnight (8) Gout: Plan: No accute flare- allopurinol and colchicine on hold at admission (9) Gait instability: Plan: Secondary to CVA as above - PT/OT consult (10) Frequency of urination: Plan: PSA level sent- patient feels he is completley emptying his bladder - will perform PVR bladder scan as well - based off PSA level will follow pharmacological assistance Admission and Anticipated Discharge Date Admission Date: September 24, 2021 Subjective HD#1 from acute right basal ganglion CVA. Patient is improving in symptoms since yesterday with less facial droop, and very minimal left sided weakness. He was up and ambulating with PT/OT this morning on my evaluation. His abnormal balance and ataxia are resolved from yesterday. His left lower leg weakness is improved since yesterday and he was walking without an assistance device. Patient overall states he feels better. Plavix therapy was initiated on admission as well as his aspirin therapy. Appreciate Neurology assistance. Review of Systems Review of Systems: REVIEW OF SYSTEMS: Constitutional: No fever, sweats or chills Eyes: No diplopia, no worsening or blurred vision ENT: (+) difficulty hearing wears hearing aids, dysphagia- improving Respiratory: No cough, sputum, dyspnea at rest or on exertion Cardiovascular: No chest pain, tightness or palpitations Abdomen: No pain, nausea, vomiting, diarrhea or constipation Musculoskeletal: No joint pain, calf pain, swelling Neurologic: (+) left sided weakness, numbness/tingling, and balance problems Psychiatric: No anxiety or depression Skin: No rash or itch Physical Exam Physical Exam: PHYSICAL EXAM: General: awake, alert, no apparent distress Head: Normocephalic, atraumatic ENT: PERRLA, EOMI, no pharyngeal exudate, mucous membranes moist, does have some mild laceration to his lower lip and inside left lip from unintentionally biting it while chewing Neuro: AAO x 3, speech clear and appropriate- mild slurring of words, tongue midline, left side facial droop strength intact bilaterally 5/5 upper and lower right side, 4/5 left upper and lower, overshoot and discoordinate with finger to nose on the left, ataxia and difficulty with tandem walking with left side. NIHSS- 2 Chest: equal rise and fall of the chest, no accessory muscle use, no heaves or thrills, Clear to auscultation, on room air, Cardiac: Regular rate and rhythm, telemetry reviewed-NSR, skin warm dry, cap refill <3 seconds, peripheral pulses +2 no JVD, no murmur, no edema GI: NABS x 4 quadrants, soft, nontender to palpation, no rebound, guarding or tenderness : urgency and increase frequency reported with patient Extremities: Normal inspection, no peripheral edema or erythema, calfs nontender to palpation Psych: Normal mood and affect Skin: no rash or erythema Results & Data Results & Data ([facility]) Vital Signs (Past 12 Hours) Vital Signs Temp Pulse Resp BP Pulse Ox 09/25/21 05:14 38.7 C H 64 16 158/62 H 95 Laboratory Results Abnormal lab results 09/24/21 09/24/21 09/24/21 Range/Units 14:10 14:17 21:27 [place] # (Auto) (0.11-0.59) K/uL Potassium (3.5-5.1) mmol/L POC Total CO2 21 L (24-31) mmol/L POC BUN 27 H (7-18) mg/dl BUN 25 H (7-18) mg/dl BUN/Creatinine Ratio 21.6 H (10-20) Total Bilirubin 1.8 H (0.2-1) mg/dl AST 41 H (15-37) U/L Alkaline Phosphatase 130 H (45-117) U/L Total Protein 9.1 H (6.4-8.2) gm/dl Globulin 4.7 H (2.5-4.0) gm/dl Cholesterol (0-200) mg/dl Urine Ketones Trace H (Negative) 09/25/21 09/25/21 Range/Units 06:12 06:12 [place] # (Auto) 1.01 H (0.11-0.59) K/uL Potassium 3.4 L (3.5-5.1) mmol/L POC Total CO2 (24-31) mmol/L POC BUN (7-18) mg/dl BUN 20 H (7-18) mg/dl BUN/Creatinine Ratio (10-20) Total Bilirubin (0.2-1) mg/dl AST (15-37) U/L Alkaline Phosphatase (45-117) U/L Total Protein (6.4-8.2) gm/dl Globulin (2.5-4.0) gm/dl Cholesterol 206 H (0-200) mg/dl Urine Ketones (Negative) Medications Administered Aspirin (Aspirin 81 Mg Ectab) 81 mg PO [facility] Stop: 10/25/21 08:59 Last Admin: 09/25/21 08:48 Dose: 81 mg Documented by: [id number] Clopidogrel Bisulfate (Clopidogrel Bisulfate 75 Mg Tab) 75 mg PO [facility] Stop: 10/25/21 08:59 Last Admin: 09/25/21 08:48 Dose: 75 mg Documented by: [id number] Metoprolol Succinate (Metoprolol Succ 50mg Ext Rel Tab) 50 mg PO [facility] Stop: 10/25/21 08:59 Last Admin: 09/25/21 08:48 Dose: 50 mg Documented by: [id number] Discontinued Medications Aspirin (Aspirin 325 Mg Ectab) 325 mg PO [facility] Stop: 10/24/21 14:44 Last Admin: 09/24/21 14:48 Dose: Not Given Documented by: [id number] Aspirin (Aspirin 300 Mg Supp) 300 mg MS ONE ONE Stop: 09/24/21 16:08 Last Admin: 09/24/21 16:29 Dose: 300 mg Documented by: [id number] Clopidogrel Bisulfate (Clopidogrel Bisulfate 75 Mg Tab) 75 mg PO NOW STA Stop: 09/24/21 19:10 Last Admin: 09/24/21 19:45 Dose: 75 mg Documented by: [id number] Gadobutrol (Gadobutrol 30ml Vial) 8.5 ml IV ONCE ONE Stop: 09/24/21 17:10 Last Admin: 09/24/21 17:10 Dose: 8.5 ml Documented by: [id number] Sodium Chloride (Nss 1000ml) 1,000 mls @ 125 mls/hr IV .Q8H DERRICK Stop: 10/24/21 14:44 Last Infusion: 09/24/21 21:12 Dose: 0 mls/hr Documented by: [id number] Admin: 09/24/21 14:48 Dose: 125 mls/hr Documented by: [id number] Potassium Chloride (Potassium Chloride Crtab 20 Meq Tabcr) 20 meq PO NOW STA Stop: 09/25/21 10:09 Last Admin: 09/25/21 10:28 Dose: 20 meq Documented by: [id number] PG Care Time/CCT Total # of Minutes Spent Total Time Spent with Patient: Total time spent is greater than 50% in coordination of care (as documented) at patient's floor/unit and/or counseling patient: Coding Level of Care Code 15989 Subseq Hosp Care Lvl 3 Diagnoses CVA (cerebral vascular accident) I63.9 Cerebral vascular disease I67.9 Fall W19.XXXA Encounter type: initial encounter Hypercholesterolemia E78.00 CAD (coronary artery disease) I25.10 Diastolic congestive heart failure I50.30 Hypertension I10 Gout M10.9 Gait instability R26.81 Frequency of urination R35.0 (1) Fall Encounter type: initial encounter Qualified Code(s): W19.XXXA - Unspecified fall, initial encounter
--- NOTE | 2021-09-25 10:02 | Electrocardiogram Report ---
Test Reason : Blood Pressure : / mmHG Vent. Rate : 069 BPM Atrial Rate : 069 BPM P-R Int : 156 ms QRS Dur : 102 ms QT Int : 424 ms P-R-T Axes : 044 038 -69 degrees QTc Int : 454 ms Normal sinus rhythm Possible Left atrial enlargement RSR' or QR pattern in V1 suggests right ventricular conduction delay Abnormal ECG When compared with ECG of 22-SEP-2021 10:02, No significant change Confirmed by Steven Quintero ([id number]) on 09/25/2021 10:02:21 AM Referred By: REFERRED SELF Confirmed By:Steven Quintero
[2021-09-25] MEDS ORDERED: POTASSIUM CHLORIDE CRTAB 20 MEQ TABCR PO STA (10:08)
--- NOTE | 2021-09-25 10:10 | Neurology Consultation ---
Date of Consultation September 25, 2021 Assessment & Plan (1) Acute CVA (cerebrovascular accident): (2) Acute left hemiparesis: (3) Essential tremor: (4) Hypertension: patient has undergone an acute stroke in the right basal ganglia area resulting in some very mild left-sided weakness (face > leg > arm). He has no other significant neurologic deficits at this time. Clinically he is already improving. Etiology of the stroke is likely ischemic secondary to his history of hypertension. He has elevated total cholesterol as well. He did have some vertiginous symptoms related to liquid irrigation of his right ear to treat impacted cerumen. This has resolved. Patient has a history of tremor consistent with essential tremor. It may be familial although his parents relatively young. He has no rigidity, bradykinesia, or resting tremor. Therefore, I do not believe he is anything to suggest Parkinson's disease. Recommendations: 1. continue 81 milligram aspirin +75 milligrams clopidogrel daily for 3 weeks then discontinue the aspirin and remain on clopidogrel alone. 2. control blood pressure as you are doing, aiming for a mean arterial pressure of 95-100. 3. initiate statin for elevated total cholesterol. Technically, he would be a high dose statin candidate but I think it is reasonable to just initiate a "regular" dose in this patient 4. Echocardiogram 5. Awaiting hemoglobin A1c 6. Increase activity as able and obtain physical, occupational, and speech therapy consult. 7. I can follow up as an outpatient and we can address his tremor then. Overall, I spent a total of 105 minutes with this case including review of records, review of MRI and CT films, direct evaluation the patient at bedside, and discussing the case with the patient at bedside, RN at bedside, and Dr. Orantes including differential diagnosis and treatment options. History of Present Illness Reason for Consultation: Patient is a 71-year-old, who I was asked to see at the request of Dr. Orantes , neurologic consultation regarding stroke. Requesting Physician: Dr. Orantes Attending Physician: Floyd Orantes MD History of Present Illness patient has a longstanding history of hypertension since his 30s. He has dyslipidemia and significant coronary artery disease, status post coronary bypass graft in 2004 at . He has a history of chronic neck pain which is stable and a history of tremor ( called essential tremor by other clinicians) which he has had for last 2 years. He has been on aspirin for 40 years on a daily basis. On September 16, he went to see his primary care physician for routine checkup. He says he did well but after being treated for right ear impacted cerumen with irrigation, he had some vertigo for about 10-15 minutes. it then resolved and he drove home without difficulty. He had no pain or weakness. On the , he had noted some fluid dripping out of his right ear but he did not have any vertigo or other symptoms. On September 22, he went to the emergency room because of some dizziness and leaning to the left. He felt that his left leg at been weak for about 2 days and he had fallen several times. He denied headache. He did have some wooziness /dizziness but no true vertigo or nausea. He was leaning to the left. Blood pressure was elevated at 170 1/92 ( and then again 147/110). He has unremarkable labs except for an elevated alkaline phosphatase of 142. Chest x- ray showed some bilateral lower lung airspace opacities. CT scan of the head showed no acute change. CT angiography of the head and neck showed some [id number] multifocal stenoses in the MCAs, seismograph helper, and distal left ICA. There was no occlusion or aneurysm. The origin of the right internal carotid artery 50 percent stenosis. An MRI of the brain showed no acute stroke. He was discharged on same medication and the clinician felt that this was an inner ear issue. He persisted in having left facial droop, left leg weakness and balance problems hand by September 24 his friends convinced him to come back to the emergency room. He arrived September 24 1347, with a temperature of 36.7, pulse 70 and regular, respiratory rate 16, blood pressure 175/86, and O2 saturation 98 percent. Pressure remained elevated. On examination he had left facial droop and some mild left arm and left leg weakness. CBC was unremarkable. Chem profile revealed a the AST of 41 and an alk-phos of 130. chemistry profile was otherwise unremarkable. CT scan of the head showed a hypodensity in the right lentiform nucleus. MRI of the brain revealed an acute infarct in the right lentiform nucleus. He has mild nonspecific old small vessel ischemic disease otherwise. Currently he feels that his arm is back to baseline and his leg is much improved. He does not have any swallowing issues or choking, headache, vision problems, pain, dizziness or vertigo, lightheadedness, tinnitus, or right-sided issues. He has chronic hearing loss for 10 years. He wears hearing aids. Allergies Allergy/AdvReac Type Severity Reaction Status Date / Time Iodinated Contrast Media Allergy Intermediate Hives Verified 09/24/21 14:21 iodine Allergy Intermediate Hives Verified 09/24/21 14:21 shellfish derived Allergy Intermediate Hives Verified 09/24/21 14:21 Bwutksd-YTE-MeK Reductase Allergy Intermediate myalgia Verified 09/24/21 14:21 Inhibitor [Yjrmcbd-Oby-Ubf Reductase Inhibitor] Sulfa (Sulfonamide Allergy Intermediate HIVES Verified 09/24/21 14:21 Antibiotics) Home Medications Medication Instructions Recorded Confirmed Type aspirin 325 mg tablet 325 mg PO QAM 10/04/18 09/24/21 History nitroglycerin 0.4 mg sublingual 0.4 mg SL UD PRN #25 tab 06/28/20 09/24/21 Rx tablet colchicine 0.6 mg tablet 1.2 mg PO UD PRN 07/21/20 09/24/21 History amlodipine 5 mg tablet 5 mg PO QAM #90 tab 07/15/21 09/24/21 Rx allopurinol 100 mg tablet 100 mg PO QAM #90 tab 07/28/21 09/24/21 Rx metoprolol succinate 50 mg 50 mg PO QAM #90 tab 07/28/21 09/24/21 Rx tablet,extended release 24 hr (Toprol XL) furosemide 40 mg tablet (Lasix) 40 mg PO DAILY PRN #30 tab 09/16/21 09/24/21 Rx meclizine 25 mg tablet 25 mg PO TID PRN #20 tab 09/22/21 09/24/21 Rx Patient History Medical History Basal cell carcinoma of back removed in office CAD (coronary artery disease) Cervical disc disorder Diastolic congestive heart failure Frequent PVCs Gout History of basal cell carcinoma History of kidney stones Hypercholesterolemia Hypertension Normal colonoscopy On anticoagulant therapy aspirin 325mg daily Surgical History History of angioplasty x2--04/1989 (no stent placed) 12/1998 with 1 stent placed History of cardiac cath last 04/2005 @ [facility] by Dr. Benitez--[place] [facility] [place]G--follows with Dr. Benitez History of quadruple bypass 04/2005 @ [facility] History of repair of left rotator cuff S/P Mohs surgery for basal cell carcinoma (08/2020) Status post cataract extraction bilt Status post eye surgery retina repair 2013 on left eye Status post hemorrhoidectomy Status post hernia repair Family History Father , age 50 of an CO Myocardial infarction Mother , age 68 of metastatic breast cancer Hearing loss Breast cancer Tremor Sister Hypertension Parkinson disease Other No family history of adverse response to anesthesia Denies family history of Ovarian cancer Prostate cancer Clotting disorder Colorectal cancer Social History Smoking Status: Never smoker Second Hand Exposure: Yes (stepfather smoked); Hx Alcohol Use: Yes Alcohol type: beer and wine Alcohol Intake Frequency: 2-4 x/Month Hx Substance Use: No Preferred Language: Lithuanian Communication Ability: Effective Visual Impairment: No Limitations Hearing Ability: Use of Hearing Aid [employer] Architect Required: No Beliefs That Will Affect Care: None marital status: Single Current Living Situation: Alone current occupational status: retired 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 [employer] How many Children do You have: 0 Feels Safe at Home: Yes Safety Concerns: Feels Safe At This Time Childhood Exposure to Second-Hand Smoke: Yes caffeine: Yes (tea daily) during the past year weight has: remained stable Dental Care, Regularly: Yes Physical Activity Frequency: Daily Physical Activity Frequency Comment: 3 mi walk daily Seatbelt Use: always Sunscreen Use: No Assistive Devices: Hearing Aid - Bilateral Review of Systems Constitutional: no fever, no fatigue and no weakness Eyes: no diplopia, no eye pain and no worsening vision Ear, Nose, Mouth, Throat: + hearing loss; no ear pain, no tinnitus, no dizziness, no snoring, no hoarseness and no dysphagia Respiratory: no cough and no dyspnea Cardiovascular: no chest pain, no palpitations and no lightheadedness Gastrointestinal: no abdominal pain, no nausea and no vomiting Musculoskeletal: no back pain, no neck pain, no radicular pain, no joint pain and no myalgia Integumentary: no rash and no lesions Neurologic: + gait abnormality and + localized weakness; no generalized weakness, no tingling, no numbness, no tremor(s), no abnormal movements, no headache(s), no abnormal speech, no confusion and no memory loss Psychiatric: no depression, no irritability, no anxiety, no difficulty concentrating, no confusion and no hallucinations Endocrine: no fatigue and no flushing Hematologic / Lymphatic: no easy bleeding and no easy bruising Allergy / Immunological: no urticaria and no problem reported Exam (Neuro) Physical Exam: The patient is right-handed. The patient is awake, alert, and attentive. Speech is normal without any aphasia or dysarthria. The patient can name objects, repeat phrases, and has normal spontaneous speech. Mentation and thought processes are intact, with orientati on to person, place and time, and normal fund of knowledge. Attention and concentration are normal. Mood and affect are normal and appropriate. General appearance and grooming are normal. Short and long-term memory are intact. The discs are sharp with positive venous pulsations bilaterally. There are no exudates, hemorrhages, or blood vessel changes seen. Pupils are 4 mm bilaterally and reactive to light. Extraocular eye muscles are intact without nystagmus. Visual acuity and visual crane seem normal grossly to confrontation. There are no deficits to sensation in the face in all 3 distributions of the fifth cranial nerve bilaterally. Corneal reflexes are positive bilaterally. There is a dense left facial droop. Hearing is decreased bilaterally. Palate moves well without asymmetry. There is normal sternocleidomastoid and trapezius (shoulder shrug) strength bilaterally. Tongue is midline with good strength bilaterally. Neck has a full range of motion without discomfort. There are no cervical bruits bilaterally. There are no cranial or ocular bruits. Heart is without murmur. There is a regular rhythm and rate. Cervical, thoracic, and lumbar spine are nontender to palpation. Gait was not tested but stance sitting up in bed is reasonable. Sitting up did not give him Lightheadedness or vertiginous symptoms. With outstretched arms there is no drift. There are no resting tremors. He has very mild postural action tremor bilaterally left greater than right side. There is no ataxia with finger to nose testing. There is good facility in the hands. No other abnormal involuntary movements are noted. Motor strength is 5/5 diffusely in the arms bilaterally including deltoids, biceps, triceps, brachioradialis, wrist flexors and extensors, lace and textiles restorer, and intrinsic hand muscles. Motor strength is 5/5 diffusely in the right lower extremity including hip flexors, quadriceps, hamstrings, gastrocnemius, tibialis anterior, tibialis posterior, and Peroneii muscles. The left lower extremity is 4+/ 5 diffusely. Toe extensors are normal and there is good bulk in the extensor digitorum brevis muscles bilaterally. The limbs have good tone without rigidity or spasticity. There is no atrophy noted in the muscles. Muscle bulk is normal, there is no tenderness to palpation, no myotonia to percussion, and no fasciculations seen. Sensory examination is intact to touch and pin throughout all 4 limbs diffusely. . Reflexes are 2/4 in the biceps, triceps, brachioradialis, quadriceps, and Achilles tendons bilaterally. There is no clonus bilaterally. Toes are downgoing with plantar stimulation bilaterally. Peripheral pulses are present and of normal quality distally in all 4 limbs. There is no peripheral edema noted in the limbs. Results & Data ([facility]) Vital Signs (Past 12 Hours) Vital Signs Temp Pulse Resp BP Pulse Ox 09/25/21 05:14 38.7 C H 64 16 158/62 H 95 PG Care Time/CCT Total # of Minutes Spent Total Time Spent with Patient: Total time spent is greater than 50% in coordination of care (as documented) at patient's floor/unit and/or counseling patient: Coding Level of Care Code 96238 Initial Inpt Care Lvl 3 Diagnoses Acute CVA (cerebrovascular accident) I63.9 Acute left hemiparesis G81.94 Hypertension I10 Essential tremor G25.0 Time Spent (min) 105 Comment add modifiers as able
--- NOTE | 2021-09-25 14:33 | XCELERA ---
[id number]
[2021-09-26] MEDS ORDERED: MELATONIN 3 MG TAB PO PRN (02:20)
[2021-09-26 08:02] LABS: Estimated Average Glucose 111 mg/dl; Hemoglobin A1C 5.5 % (4.5-5.6)
--- NOTE | 2021-09-26 08:27 | Neurology Progress Note ---
Date of Service September 26, 2021 Assessment & Plan (1) Acute CVA (cerebrovascular accident): (2) Acute left hemiparesis: (3) Essential tremor: (4) Hypertension: Plan: Patient suffered an acute stroke (likely September 23) in the right basal ganglia area, resulting in some very mild left-sided weakness (face > leg > arm). He has no other significant neurologic deficits at this time. Clinically he is already improving. Today his left facial droop is less and has more movement of the left face. His hand has some clumsiness but the leg seems resolved. Overall, improve strength compared to yesterday morning. Etiology of the stroke is likely ischemic, secondary to his history of hypertension. He has elevated total cholesterol as well. He did have some vertiginous symptoms one week ago, related to liquid irrigation of his right ear to treat impacted cerumen. This has resolved. Patient has a history of tremor consistent with essential tremor. It may be familial although his parents relatively young. He has no rigidity, bradykinesia, or resting tremor. Therefore, I do not believe he is anything to suggest Parkinson's disease. Recommendations: 1. continue 81 milligram aspirin +75 milligrams clopidogrel daily for 3 weeks total, then discontinue the aspirin and remain on clopidogrel alone. 2. control blood pressure as you are doing, aiming for a mean arterial pressure of 95-100. 3. continue rosuvastatin 10 milligrams a day 4. Increase activity as able and obtain physical, occupational, and speech therapy consult. 5. I have no further neurologic testing or treatment recommendations to make on this patient at this time, and I can follow up as an outpatient. his tremor can be addressed then. Overall, I spent a total of 35 minutes with this case including review of records, direct evaluation the patient at bedside, and discussion the case with the patient at bedside, and Dr. Samuel including differential diagnosis and treatment options. Admission and Anticipated Discharge Date Admission Date: September 24, 2021 Subjective the patient feels improved, with no leg issues and some slight clumsiness in the left hand. He has no headache or pain. Nursing reports no new issues. Echocardiogram revealed some mild left ventricular hypertrophy, but was otherwise unremarkable. Blood pressure is 147/79. Hemoglobin A1c is 5.5. Results & Data ([facility]) Vital Signs (Past 12 Hours) Vital Signs Temp Pulse Pulse Resp BP Pulse Ox 09/26/21 07:21 50 L 09/26/21 07:20 36.4 C L 56 L 16 147/79 H 95 09/26/21 04:39 36.8 C 57 L 18 146/77 H 92 09/26/21 00:59 62 09/25/21 23:00 37 C 56 L 18 139/74 94 Exam (Neuro) Physical Exam: He is awake and alert. Speech is without aphasia or dysarthria. Mood and affect are normal and appropriate. Thought processes are intact with good long and short-term memory. Extraocular eye muscles are intact without nystagmus. There is a mild facial droop on the left but it can move with voluntary smile. Tongue is midline. There is no drift on the left but there is some mild decreased facility/ clumsiness of the left hand compared to the right. Proximal arm strength on the left was 5/5 diffusely and equal to the right. Leg strength was 5/5 diffusely both proximally and distally. There is no ataxia, but there is some mild essential tremor bilaterally, same as yesterday. PG Care Time/CCT Total # of Minutes Spent Total Time Spent with Patient: Total time spent is greater than 50% in coordination of care (as documented) at patient's floor/unit and/or counseling patient: Coding Level of Care Code 17622 Subseq Hosp Care Lvl 3 Diagnoses Acute CVA (cerebrovascular accident) I63.9 Acute left hemiparesis G81.94 Essential tremor G25.0 Hypertension I10 Time Spent (min) 35
[2021-09-26] MEDS ORDERED: STROKE PATIENT DISCHARGE STA (08:59)
[2021-09-26] MEDS ORDERED: ROSUVASTATIN CALCIUM 10 MG TAB PO SCH (09:00)
[2021-09-26] MEDS ORDERED: amLODIPine BESYLATE 5 MG TAB PO SCH (09:00)
[2021-09-26] MEDS: METOPROLOL SUCC 50MG EXT REL TAB PO SCH (09:04)
[2021-09-26] MEDS: CLOPIDOGREL BISULFATE 75 MG TAB PO SCH (09:04)
[2021-09-26] MEDS: ASPIRIN 81 MG ECTAB PO SCH (09:04)
[2021-09-26 09:32] LABS: Basophils # (auto) 0.02 K/uL (0-0.2); Basophils % (auto) 0.3 %; Eosinophils # (auto) 0.16 K/uL (0-0.5); Eosinophils % (auto) 2.4 %; Hematocrit (blood only) 45.8 % (42-52); Hemoglobin 16.5 g/dL (14.0-18.0); Immature Granulocytes # (auto) 0.01 K/uL (0.00-0.02); Immature Granulocytes % (auto) 0.1 %; Lymphocytes % (auto) 31.1 %; Mean Corpuscular Hemoglobin 32.5 pg (25-34); Mean Corpuscular Volume 90.2 fL (80-100); Mean Platelet Volume 9.8 fL (7.4-10.4); Monocytes # (auto) 0.72 K/uL (0.11-0.59); Monocytes % (auto) 10.7 %; Neutrophils # (auto) 3.74 K/uL (1.4-6.5); Neutrophils % (auto) 55.4 %; Platelet Count 201 K/uL (130-400); RDW Standard Deviation 43.2 fL (36.4-46.3); Red Blood Count 5.08 M/uL (4.7-6.1); White Blood Count 6.75 K/uL (4.8-10.8)
[2021-09-26 09:59] LABS: BUN Creatinine Ratio 18.7 (10-20); Calcium 9.2 mg/dl (8.5-10.1); Creatinine Clr Calc Pharmacy 69.4 ml/min; Est GFR (African American) 82.2 ml/min; Est GFR (Non-African American) 70.9 ml/min; Magnesium 2.4 mg/dl (1.8-2.4); Potassium 3.6 mmol/L (3.5-5.1)
--- NOTE | 2021-09-26 16:51 | Discharge Summary ---
Date of Service September 26, 2021 Admission HPI Per Admitting Provider 71 YOM with past medical history of: HTN, HLD, CAD, CABG (2004), HFpEF, Gout, cervicalgia, essential tremor. Patient comes in today for noticing left sided facial droop, dysphagia, and left leg weakness. The patient noticed these symptoms starting on upon returning home from the [facility] at approximately 1600. The patient came to the EMD on for complaints of left lower extremity weakness and dizziness. The patient had CTA of the head and neck completed, CT of the head, and MRI of the head completed on . The studies at that time were not interpreted as acute CVA. When he got home that day he feels his symptoms then continued to progress from the left leg weakness, to difficulty walking on it, facial droop that got progressive and was also associated with him biting the inside of his mouth, and dysphagia with large bites of food. His friends came over for the [employer] today and noticed the above symptoms as well and he was brought to the EMD via POV, he was noted to have some balance instability at that time with leaning to the left and coordination efforts were difficulty with the left arm and foot. In the EMD the patient had a repeat of his CT scan of his head which was interpreted as Increased prominence of the hypodensity in the right lentiform nucleus is concerning for a small acute infarct. Only other change patient has noticied, is increase in frequency and urgency of urination- UA ordered. Patient will be admitted for continued assessment of his neurological status, medication optimization, and repeat of brain MRI. Patient has history of HLD and is intolerant to statins in the past secondary to myalgias. Patient has had his COVID vaccine and his COVID test on admission is: NEGATIVE Principal Diagnosis Stroke Discharge Exam Constitutional WD/WN, vitals as above Eyes EOM intact bilaterally; no conjunctival abnormality ENMT external ear and nose normal, oropharynx normal Neck trachea midline, no thyromegaly normal visual inspection Respiratory normal respiratory effort, lungs clear to auscultation no respiratory distress Cardiovascular RRR, no murmur, no edema Gastrointestinal (Abdomen) Inspection/Auscultation: abdomen normal to inspection; abdomen not distended Musculoskeletal no cyanosis or clubbing, extremities motor strength 5/5 Skin no rashes, warm and dry Neurologic moves all extremities and awake Mild left facial droop Psychiatric Orientation: alert, oriented to person and cooperative Discharge Data Allergies Allergy/AdvReac Type Severity Reaction Status Date / Time Iodinated Contrast Media Allergy Intermediate Hives Verified 09/24/21 14:21 iodine Allergy Intermediate Hives Verified 09/24/21 14:21 shellfish derived Allergy Intermediate Hives Verified 09/24/21 14:21 Myicijv-ODW-MzJ Reductase Allergy Intermediate myalgia Verified 09/24/21 14:21 Inhibitor [Orahmbh-Ztl-Mha Reductase Inhibitor] Sulfa (Sulfonamide Allergy Intermediate HIVES Verified 09/24/21 14:21 Antibiotics) Consultations 09/24/21 15:50 ED Decision to Admit Stat 09/24/21 18:57 Consult Neurology Routine Ordered Studies 09/24/21 13:50 CT head/brain wo con Stat 09/24/21 15:38 MR brain wo/w con Routine Hospital Course (1) CVA (cerebral vascular accident): CVA - hypodensity in the right lentiform nucleus. Also with microvascular disease- - Risk factors, AGE, HLD, HTN - With left sided facial droop, dysphagia, balance, and ataxia- improving on - Asa 81mg PO daily - Add Plavix 75 mg PO daily - Patient intolerant to statins secondary to previous reported myalgias- Can only find on record review that he was on Zocor in the past- will try low dose Rosuvastatin 10mg PO daily- Patient is willing to try them again - Not sure if he was taking his previous statins with his colchicine or not. - Allow permissive HTN - MRI repeated confirms the above - Neurology consult for disease modifying medications follow- appreciate neurology assistance - PT/OT consult- completed, patient likely be good candidate to continue PT as outpatient - Speech evaluation- diet for now minced and moist slippery- does not choke with water - no other needs. - Discharged on ASA/Plavix x 3 weeks, then stop ASA. Discharged on lower-dose statin. Has tried many in the past, and was concerned about further joint pain. Only willing to try 10 mg daily. - Given referral for outpatient PT/OT/[employer] services. (2) Cerebral vascular disease: Mild/moderate multifocal stenosis within the bilateral MCAs, bilateral orthopedic cast specialist, and left ICA is described above - Continue with BP management - Lipid management- - Asa/plavix as above (3) Fall: On patient reports multiple- no acute injury noted on exam or imaging - any change repeat non-con head CT (4) Hypercholesterolemia: Cholesterol 218 mg/dl (0-200) H 07/25/21 12:58 07/25/21 LDL Calculated 139 mg/dl 07/25/21 12:58 07/25/21 HDL 68 mg/dl 07/25/21 12:58 07/25/21 Patient recalls trying multiple statin medications and having myalgias with all of them. He endorses that some were worse than others. Lipid profile as above (5) CAD (coronary artery disease): CAD with angioplasty in 1988, stent in and CABG x4 in 2004 - As above continue with BB, ASA, BP control with amlodipine - Rosuvastatin initiated- follow for tolerance (6) Diastolic congestive heart failure: PRN diuretics for weight gain as outpatient - hold - will follow daily and diurese as needed - no acute symtpoms of failure (7) Hypertension: Permissive HTN with CVA - continue BB for CAD - restarted home amlodipine - held for permissive HTN overnight (8) Gout: No accute flare- allopurinol and colchicine on hold at admission (9) Gait instability: Secondary to CVA as above - PT/OT consult (10) Frequency of urination: PSA level sent- patient feels he is completley emptying his bladder - will perform PVR bladder scan as well - based off PSA level will follow pharmacological assistance Total Time Total Time Spent Total Time Spent (In Minutes): 35 Discharge Plan Discharge Items Patient Disposition: Home - Self-Care Reason For Visit: LEFT SIDE OF FACE DROOPING/LEFT WEAK/SLURRED SP Discharge Diagnosis: Stroke Activity: Resume your previous activity Non-emergency contact: Primary Care Provider and Neurologist Call non-emergency contact if: your symptoms worsen Follow-up/Referrals: Rick Saez MD [Physician] - (Please see Dr. Saez in 4-6 weeks. Bindu at Dr. Saez's office will call patient with hospital follow up visit.) Hilda Pepe DO [Primary Care Provider] - 10/12/21 8:20 am Diet: Heart Healthy Addtl Attending Provider Instructions: Mr. Escobar, You were in the hospital for a small stroke on the right side of your brain. You were seen by the neurologist, and we have adjusted your medications to help avoid a further stroke. Please take aspirin and Plavix for 3 weeks (until October 14), then you can stop your home aspirin and ONLY take the Plavix. We have tried a statin again for you because this can prevent further strokes. Pending Studies at Discharge: No Stand-Alone Forms: Medications to Prevent Stroke, [facility] Medications and DC Order Prescriptions: New clopidogrel 75 mg Tablet 75 mg PO QAM Qty: 30 RF: 1 rosuvastatin [Crestor] 10 mg Tablet 10 mg PO QAM Qty: 30 RF: 1 Continued amlodipine 5 mg tablet 5 mg PO QAM Qty: 90 RF: 1 allopurinol 100 mg tablet 100 mg PO QAM Qty: 90 RF: 3 metoprolol succinate [Toprol XL] 50 mg tablet extended release 24 hr 50 mg PO QAM Qty: 90 RF: 3 furosemide [Lasix] 40 mg tablet 40 mg PO DAILY PRN (Reason: weight gain) Qty: 30 RF: 3 nitroglycerin 0.4 mg tablet, sublingual 0.4 mg SL UD PRN (Reason: chest pain) Qty: 25 RF: 0 aspirin 325 mg Tablet 325 mg PO QAM RF: 0 colchicine 0.6 mg tablet 1.2 mg PO UD PRN (Reason: gout) RF: 0 meclizine 25 mg tablet 25 mg PO TID PRN (Reason: dizziness) Qty: 20 RF: 0 Discharge Orders: Discharge Order (Routine); Ordered 09/26/21 Ordered By: Leonid Samuel Admission Data Admit Date/Time: 09/24/21 15:50 Attending Provider: Leonid Samuel Admit Provider: Floyd Orantes Primary Care Provider: Hilda Pepe Other Providers: Rick Saez ; Leonid Samuel Other Interventions: Discharge Summary Assessment (RN) Last Done: 09/26/21 09:17 Coding Level of Care Code D/C DAY MANAGEMENT >30 MINS Diagnoses CVA (cerebral vascular accident) I63.9 Cerebral vascular disease I67.9 Fall W19.XXXA Encounter type: initial encounter Hypercholesterolemia E78.00 CAD (coronary artery disease) I25.10 Diastolic congestive heart failure I50.30 Hypertension I10 Gout M10.9 Gait instability R26.81 Frequency of urination R35.0
== END 2021-09-26 11:05 | disposition home or self-care (01) | DRG 65 ==
LOC: ED 13:42 → EDINP 15:50 → SUATTDRO 15:50 → 2W 18:55